=== PATIENT | female | born 2000 | race American Indian/Alaskan Native ===

== ENCOUNTER 2018-01-29 12:45 | Emergency (ER) | payer SELFPAY ==
--- NOTE | 2018-01-29 15:36 | Emergency Department Report ---
ED Extremity Problem HPI - General Chief complaint: Extremity Injury, Lower Stated complaint: SWOLLEN ANKLES/LEGS Time Seen by Provider: 01/29/18 15:27 Source: patient Mode of arrival: Ambulatory Limitations: No Limitations - History of Present Illness Initial comments: This is a 17-year-old female here report that she is having both legs, feet and ankles swollen. She said this started Saturday after she got up a flight going to [place]. She says she [facility] the [facility] [place] and then on the she flew to [place] from [place] and when she got off the plane a couple hours later both her legs were swollen and painful. Patient does take control but if the implant in her left arm. She denies any shortness of breath or chest pain. Denies any history of clot in her lungs or legs. Denies any nausea or vomiting. Denies any numbness or tingling to extremities. Denies any trauma or fever or chills. Denies any bleeding disorder or clotting disorder. No family history of blood clots. Patient states that she take naproxen which was given to her by her [employer] for her menstrual cycle. Pain to 4/10, intermittent, achy and worse with walking. She denies any pain in her leg reports swelling. MD Complaint: extremity pain, extremity swelling, joint swelling, joint paint Onset/Timin -: days(s) Location: bilateral lower extremity History of Same: No -: No myalgia, Yes arthralgia, No fever, No associated dyspnea, No associated chest pain Radiation: none Severity scale (0 -10): 4 Quality: aching Consistency: intermittent Improves with: rest Worsens with: weight bearing, walking Associated Symptoms: arthralgias. denies: chest pain, shortness of breath, fever, myalgias, rash - Related Data Previous Rx's Medication Instructions Recorded Last Taken Type Furosemide [Lasix TAB] 40 mg PO QDAY 2 Days #2 tablet 01/29/18 Unknown Rx Potassium Chloride [K-Dur] 20 meq PO QDAY 2 Days #2 tablet 01/29/18 Unknown Rx Allergies Allergy/AdvReac Type Severity Reaction Status Date / Time amoxicillin Allergy Hives Verified 01/29/18 12:58 ED Review of Systems ROS: Stated complaint: SWOLLEN ANKLES/LEGS Other details as noted in HPI Constitutional: denies: chills, fever Eyes: denies: eye pain, eye discharge Respiratory: denies: cough, shortness of breath, SOB with exertion, SOB at rest , stridor, wheezing Cardiovascular: edema. denies: chest pain, palpitations, syncope Gastrointestinal: denies: abdominal pain, nausea, vomiting, diarrhea Genitourinary: denies: urgency, dysuria, hematuria, discharge, abnormal menses Musculoskeletal: joint swelling, arthralgia. denies: back pain Skin: denies: rash, lesions Neurological: denies: headache, weakness, paresthesias, abnormal gait, vertigo ED Past Medical Hx - Past Medical History Previous Medical History?: No - Surgical History Past Surgical History?: No - Family History Family history: hypertension - Social History Smoking Status: Never Smoker Substance Use Type: None - Medications Home Medications: Home Medications Medication Instructions Recorded Confirmed Last Taken Type Furosemide [Lasix TAB] 40 mg PO QDAY 2 Days #2 tablet 01/29/18 Unknown Rx Potassium Chloride [K-Dur] 20 meq PO QDAY 2 Days #2 tablet 01/29/18 Unknown Rx ED Physical Exam - General Limitations: No Limitations General appearance: alert, in no apparent distress - Head Head exam: Present: atraumatic, normocephalic, normal inspection, other (normal exam) - Eye Eye exam: Present: normal appearance, PERRL, EOMI Pupils: Present: normal accommodation - ENT ENT exam: Present: normal exam, normal orophraynx, mucous membranes moist - Neck Neck exam: Present: normal inspection, full ROM, other (no C-spine tenderness). Absent: tenderness, lymphadenopathy - Respiratory Respiratory exam: Present: normal lung sounds bilaterally. Absent: respiratory distress, wheezes, rales, rhonchi, stridor, chest wall tenderness, accessory muscle use, decreased breath sounds, prolonged expiratory - Cardiovascular Cardiovascular Exam: Present: regular rate, normal rhythm, normal heart sounds. Absent: systolic murmur, diastolic murmur - GI/Abdominal GI/Abdominal exam: Present: soft, normal bowel sounds. Absent: distended, tenderness, rigid - Extremities Exam Extremities exam: Present: normal inspection, full ROM, tenderness (tended to palpate to the left foot), normal capillary refill, pedal edema (feet and both legs left greater than right), joint swelling (swelling to both ankles), other ( No cce. + 2 pulses in all extremities, no neurovascular compromise except patient has swelling to bilateral lower extremity from leg to her feet. She only has tenderness palpated to her left foot but no erythema, laceration or ecchymotic areas.). Absent: calf tenderness (negative Homans sign bilateral extremity) - Back Exam Back exam: Present: normal inspection, full ROM, other (ambulates without any difficulties). Absent: tenderness, CVA tenderness (R), CVA tenderness (L), muscle spasm, paraspinal tenderness, vertebral tenderness, rash noted - Neurological Exam Neurological exam: Present: alert, oriented X3, normal gait, reflexes normal. Absent: motor sensory deficit - Psychiatric Psychiatric exam: Present: normal affect, normal mood - Skin Skin exam: Present: warm, dry, intact, normal color. Absent: rash ED Course Vital Signs 01/29/18 12:58 Temperature 98.6 F Pulse Rate 94 H Respiratory 20 Rate Blood Pressure 133/77 O2 Sat by Pulse 98 Oximetry - Reevaluation(s) Reevaluation #1: 01/29/18 17:16 She is stable throughout ED course ED Medical Decision Making - Lab Data Result diagrams: 01/29/18 15:40 01/29/18 15:40 - Radiology Data Radiology results: report reviewed had bilateral lower extremity venous Doppler preliminary reading shows no evidence of DVT or SVT. Final reading to follow TAYLER LIVINGSTONALBERT Female : 2000 [facility]# [id number] 01/29/18 16:25 - Radiology Dept. Note by JIM FLANAGAN [facility] Num: [id number] : 2000 Patient Age: 17 VASCULAR LAB.PRELIMINARY REPORT. BLE VENOUS DUPLEX DONE. NO EVIDENCE OF DVT/SVT IN VESSELS VISUALIZED. Initialized on 01/29/18 16:25 - END OF NOTE - Differential Diagnosis DVT, edema, arthralgia Critical care attestation.: If time is entered above; I have spent that time in minutes in the direct care of this critically ill patient, excluding procedure time. ED Disposition Clinical Impression: Edema of both lower extremities, Arthralgia of both lower legs Disposition: DC-01 TO HOME OR SELFCARE Is pt being admited?: No Does the pt Need Aspirin: No Condition: Stable Instructions: Arthralgia (ED), Leg Edema (ED) Additional Instructions: Follow-up with your primary care physician in 2 days. He can wear compression hoses knee-high which she can purchase at the pharmacy [id number] Elevate your lower extremity when he is sitting or laying down. Take Lasix once daily for 2 days and please take potassium supplement as prescribed with Lasix. Prescriptions: Furosemide [Lasix TAB] 40 mg PO QDAY 2 Days #2 tablet Potassium Chloride [K-Dur] 20 meq PO QDAY 2 Days #2 tablet Referrals: PRIMARY CAREMD [Primary Care Provider] - 01/31/18 [facility] [Outside] - 01/31/18 Forms: Work/School Release Form(ED)
[2018-01-29 16:00] LABS: Basophils % (Auto) 0.7 % (0.0-1.8); Eosinophils # (Auto) 0.1 K/mm3 (0.0-0.4); Eosinophils % (Auto) 1.7 % (0.0-4.3); Hematocrit 36.6 % (30.3-42.9); Hemoglobin 11.5 gm/dl (10.1-14.3); Lymphocytes # (Auto) 1.4 K/mm3 (1.2-5.4); Lymphocytes % (Auto) 27.7 % (13.4-35.0); Mean Corpuscular HGB Conc 32 % (30-34); Mean Corpuscular Volume 80 fl (79-97); Monocytes # (Auto) 0.5 K/mm3 (0.0-0.8); Monocytes % (Auto) 10.2 % (0.0-7.3); Platelet Count 353 K/mm3 (140-440); Red Blood Count 4.55 M/mm3 (3.65-5.03); Red Cell Distribution Width 15.9 % (13.2-15.2)
[2018-01-29 16:01] LABS: Mean Corpuscular Hemoglobin 25 pg (28-32)
[2018-01-29 16:09] LABS: INR 1.05 (0.87-1.13)
[2018-01-29 16:10] LABS: Partial Thromboplastin Time 27.8 Sec. (24.2-36.6)
[2018-01-29 16:13] LABS: BUN/Creatinine Ratio 20; Blood Urea Nitrogen 10 mg/dL (7-17); Hemolysis Index 0
[2018-01-29 17:48] VITALS: BP 135/72
== END 2018-01-29 17:47 | disposition home or self-care (01) ==
LOC: ED 12:45
DX: M79.662 Pain in left lower leg (principal); M79.661 Pain in right lower leg; Z88.1 Allergy status to other antibiotic agents
CPT/HCPCS: 36415; 80048; 84703; 85025; 85610; 85730; 93970; 99284

== ENCOUNTER 2019-06-29 18:18 | Emergency (ER) | payer SELFPAY ==
[2019-06-29 21:49] LABS: Hematocrit 36.6 % (30.3-42.9); Mean Corpuscular HGB Conc 33 % (30-34); Mean Corpuscular Volume 85 fl (79-97); Platelet Count 370 K/mm3 (140-440); Red Cell Distribution Width 13.3 % (13.2-15.2)
[2019-06-29] MEDS ORDERED: medroxyPROGESTERone ACETATE 5 MG TAB PO STA (22:04)
[2019-06-29 22:48] LABS: Bilirubin,Urine NEG (Negative); Blood,Urine LG (Negative); Color,Urine Yellow (Yellow); Mucus,Urine 2+ /HPF; Urobilinogen,Urine < 2.0 mg/dL (<2.0)
[2019-06-29 23:10] LABS: Alanine Aminotransferase 15 units/L (7-56); Albumin 4.5 g/dL (3.9-5); BUN/Creatinine Ratio 38; Blood Urea Nitrogen 19 mg/dL (7-17); Calcium 9.3 mg/dL (8.4-10.2); Hemolysis Index 5
--- NOTE | 2019-06-30 00:06 | Emergency Department Report ---
ED Female HPI - General Chief complaint: Vaginal Bleeding Stated complaint: LIGHT HEADED, WEAK, BLEEDING Source: patient Mode of arrival: Ambulatory Limitations: No Limitations - History of Present Illness Initial comments: Patient is a nulliparous 19-year-old -[place] Citizen female who presents to the ED with persistent intermittent heavy vaginal bleeding for the last 4 months. Patient states that she is on control and Nexplanon which is expiring in a few months but that she has had persistent heavy vaginal bleeding for the last 4 months and in the last 1 week felt lightheaded and generalized weakness. Patient denies dysuria, urinary frequency and urgency, abdominal pain, nausea, vomiting, diarrhea, dizziness, syncope, chest pain, shortness of breath, fever and chills. MD Complaint: vaginal bleeding -: Gradual, month(s) (4) Location: other (vaginal) Radiation: non-radiating Severity: mild Severity scale (0 -10): 1 Quality: dull Consistency: intermittent Improves with: none Worsens with: none Are you Now?: No Associated Symptoms: denies other symptoms, vaginal bleeding. denies: vaginal discharge, abdominal pain, nausea/vomiting, fever/chills, headaches, loss of appetite, dysuria, hematuria, rash, seizure, shortness of breath, syncope, wea kness - Related Data Sexually active: Yes : 0 Para: 0 A: 0 Previous Rx's Medication Instructions Recorded Last Taken Type Furosemide [Lasix TAB] 40 mg PO QDAY 2 Days #2 tablet 01/29/18 Unknown Rx Potassium Chloride [K-Dur] 20 meq PO QDAY 2 Days #2 tablet 01/29/18 Unknown Rx medroxyPROGESTERone ACETATE 10 mg PO QDAY #14 tablet 06/29/19 Unknown Rx [Provera] Allergies Allergy/AdvReac Type Severity Reaction Status Date / Time amoxicillin Allergy Hives Verified 06/29/19 22:06 ED Review of Systems ROS: Stated complaint: LIGHT HEADED, WEAK, BLEEDING Other details as noted in HPI Constitutional: denies: chills, fever Eyes: denies: eye pain, eye discharge, vision change ENT: denies: ear pain, throat pain Respiratory: denies: cough, shortness of breath, wheezing Cardiovascular: denies: chest pain, palpitations Endocrine: no symptoms reported Gastrointestinal: denies: abdominal pain, nausea, diarrhea Genitourinary: abnormal menses (Heavy vaginal bleeding). denies: urgency, dysuria, discharge Musculoskeletal: denies: back pain, joint swelling, arthralgia Skin: denies: rash, lesions Neurological: other (Lightheadedness). denies: headache, weakness, paresthesias Psychiatric: denies: anxiety, depression Hematological/Lymphatic: denies: easy bleeding, easy bruising ED Past Medical Hx - Past Medical History Previous Medical History?: No - Surgical History Past Surgical History?: No - Social History Smoking Status: Never Smoker Substance Use Type: None - Medications Home Medications: Home Medications Medication Instructions Recorded Confirmed Last Taken Type Furosemide [Lasix TAB] 40 mg PO QDAY 2 Days #2 tablet 01/29/18 Unknown Rx Potassium Chloride [K-Dur] 20 meq PO QDAY 2 Days #2 tablet 01/29/18 Unknown Rx medroxyPROGESTERone ACETATE 10 mg PO QDAY #14 tablet 06/29/19 Unknown Rx [Provera] ED Physical Exam - General Limitations: No Limitations General appearance: alert, in no apparent distress - Head Head exam: Present: atraumatic, normocephalic - Eye Eye exam: Present: normal appearance, PERRL, EOMI Pupils: Present: normal accommodation - ENT ENT exam: Present: normal exam, normal orophraynx, mucous membranes moist, TM's normal bilaterally, normal external ear exam - Neck Neck exam: Present: normal inspection, full ROM. Absent: tenderness - Respiratory Respiratory exam: Present: normal lung sounds bilaterally. Absent: respiratory distress, wheezes, rales, rhonchi, chest wall tenderness, accessory muscle use, decreased breath sounds, prolonged expiratory - Cardiovascular Cardiovascular Exam: Present: regular rate, normal rhythm, normal heart sounds. Absent: systolic murmur, diastolic murmur, rubs, gallop - GI/Abdominal GI/Abdominal exam: Present: soft, normal bowel sounds. Absent: tenderness, guarding, rebound, hyperactive bowel sounds, hypoactive bowel sounds - Extremities Exam Extremities exam: Present: normal inspection, full ROM, normal capillary refill - Back Exam Back exam: Present: normal inspection, full ROM. Absent: tenderness, CVA tenderness (R), muscle spasm, paraspinal tenderness, vertebral tenderness - Neurological Exam Neurological exam: Present: alert, oriented X3, CN II-XII intact, normal gait, reflexes normal - Psychiatric Psychiatric exam: Present: normal affect, normal mood - Skin Skin exam: Present: warm, dry, intact, normal color. Absent: rash ED Course Vital Signs 06/29/19 06/29/19 18:57 22:39 Temperature 98.2 F 98.1 F Pulse Rate 94 H 87 Respiratory 20 16 Rate Blood Pressure 153/92 Blood Pressure 124/61 [Left] O2 Sat by Pulse 99 98 Oximetry ED Medical Decision Making - Lab Data Result diagrams: 06/29/19 21:22 06/29/19 21:30 - Medical Decision Making This is a nulliparous 19-year-old -[place] Citizen female who presented to the ED with persistent heavy vaginal bleeding for the last 4 months despite being on control Nexplanon. Patient had also complained of lightheadedness and generalized weakness for 1 week. In the ED, patient is alert and oriented x3 and is not in any distress with normal vital signs. Lab test results were reviewed and are all nonactionable including H&H level which are normal. Urinalysis shows no acute urinary tract infection. Patient was discharged home on medroxyprogesterone acetate 10mg daily. Patient was advised to return to the ED immediately if symptoms get worse. Patient was treated for to the [employer] physician clinic receptionist Dr. Lennon for follow-up in 5 to 7 days. - Differential Diagnosis Anemia; Ovarian cyst; ; UTI; Fibroids Critical care attestation.: If time is entered above; I have spent that time in minutes in the direct care of this critically ill patient, excluding procedure time. ED Disposition Clinical Impression: Dysfunctional uterine hemorrhage Disposition: - TO HOME OR SELFCARE Is pt being admited?: No Does the pt Need Aspirin: No Condition: Stable Instructions: Dysfunctional Uterine Bleeding (ED) Additional Instructions: Drink plenty of fluids, take medication as advised and follow-up with your [employer] physician Dr. Lennon in 5 to 7 days for reevaluation. Return to the ED immediately if symptoms get worse. Prescriptions: medroxyPROGESTERone ACETATE [Provera] 10 mg PO QDAY #14 tablet Referrals: LILIANA LENNON MD [Staff Physician] - 7-10 days Time of Disposition: 23:56 Print Language: URDU
[2019-06-30 00:34] VITALS: BP 143/90
== END 2019-06-30 00:15 | disposition home or self-care (01) ==
LOC: ED 18:18
DX: N93.8 Other specified abnormal uterine and vaginal bleeding (principal); Z79.899 Other long term (current) drug therapy
CPT/HCPCS: 36415; 80053; 81001; 84702; 85027